=== PATIENT | female | born 1945 | race Caucasian/White ===

== ENCOUNTER 2017-07-25 04:27 | Inpatient (IN) | payer OTHER ==
[~2017-07-25] VITALS: Ht 162.6 cm; Wt 127.0 kg
[2017-07-25 07:18] LABS: Basophils # (auto) 0.1 uL; Eosinophils # (auto) 0 uL; Lymphocytes # (auto) 0.6 uL; Monocytes # (auto) 0.4 uL; White Blood Cell 4.5 10^3/uL (4.4-10.8)
[2017-07-25 07:20] LABS: Basophils % (auto) 2.1 % (0.0-2.0); Eosinophils % (auto) 0.2 % (0.0-7.0); Hematocrit 40.5 % (36.0-46.0); Hemoglobin 13.9 g/dL (12.2-16.2); Lymphocytes % (auto) 13.8 % (10.0-50.0); Mean Corpuscular Hgb Conc. 34.3 g/dL (32.0-36.0); Mean Corpuscular Volume 99.1 fL (80.0-100.0); Monocytes % (auto) 8.4 % (0.0-12.0); Neutrophils # (auto) 3.4 uL; Neutrophils % (auto) 75.5 % (37.0-80.0); Nucleated Red Blood Cells % 0.2 %; Platelet Count (auto) 148 10^3/uL (140-450); Red Blood Cells 4.08 10^6/uL (4.0-5.20); Red Cell Distribution Width 13.4 % (11.8-14.3)
[2017-07-25 07:32] LABS: Albumin 3.4 g/dL (3.4-5.0); BUN/Creatinine Ratio 17.8; INR 0.99 (0.9-1.15); Partial Thromboplastin Time 29.6 sec (22.64-33.71); Potassium 3.5 mmol/L (3.5-5.1); Prothrombin Time 10.8 sec (9.37-12.3)
[2017-07-25 07:36] LABS: Bilirubin, Total 0.8 mg/dL (0.2-1.0); Total Protein 7.6 g/dL (6.4-8.2)
[2017-07-25] MEDS ORDERED: HYDROcodone-ACET 5/325MG TAB PO PRN (09:30)
[2017-07-25] MEDS ORDERED: ONDANSETRON HCL 4 MG/2 ML VIAL IV PRN (09:30)
[2017-07-25] MEDS ORDERED: TEMAZEPAM 15 MG CAP PO PRN (09:30)
[2017-07-25] MEDS ORDERED: ACETAMINOPHEN 325 MG TAB PO PRN (09:30)
[2017-07-25] MEDS: SODIUM CHLORIDE 0.9% 1,000 ML IV SCH ×2 (09:40→19:01)
[2017-07-25] MEDS ORDERED: LACTULOSE 20Gm/30ML SOLN PO PRN (09:45)
[2017-07-25] MEDS: MORPHINE SULFATE 4 MG/ML SYR/VIAL IV PRN ×3 (09:46→21:54)
[2017-07-25] MEDS: MULTIPLE VITAMIN TAB PO SCH (10:00)
[2017-07-25] MEDS: ZINC SULFATE 220 MG CAP PO SCH (10:00)
[2017-07-25] MEDS: FAMOTIDINE 20 MG TAB PO SCH ×2 (10:00→21:54)
[2017-07-25] MEDS: ASCORBIC ACID 500 MG TAB PO SCH ×2 (10:30→21:54)
[2017-07-25] MEDS ORDERED: ceFAZolin 1GM/50ML 50 ML IV ONE (11:15)
[2017-07-25] MEDS: BOOST PLUS 8 ounce PO SCH ×3 (12:00→21:54)
[2017-07-25] MEDS: NYSTATIN (MOUTH-THROAT) 500,000 UNITS/5 ML SUSP MT SCH ×3 (12:23→21:53)
[2017-07-25] MEDS ORDERED: LIDOCAINE VISCOUS 2% 15ML UD ONE (12:59)
[2017-07-25] MEDS ORDERED: diphenhdrAMINE HCL 50 MG/1 ML VL ONE (13:00)
[2017-07-25] MEDS: fentaNYL CITRATE 100 MCG/2 ML VL ONE ×4 (13:10→13:21)
[2017-07-25] MEDS: MIDAZOLAM HCL 5 MG/ML-1ML VIAL ONE ×4 (13:10→13:21)
[2017-07-25 16:22] LABS: Urine Bacteria FEW /hpf (None Seen); Urine Blood Negative /uL (Negative); Urine Mucus FEW (None Seen); Urine WBC 3 /hpf (0 - 5)
[2017-07-25 17:50] VITALS: BP 131/69
[2017-07-25] MEDS ORDERED: HYDR-392 PO (18:07)
[2017-07-25] MEDS ORDERED: LIDO2SOL18 MT (18:07)
[2017-07-25] MEDS ORDERED: LEV50T PO (18:07)
[2017-07-25] MEDS ORDERED: ONDA4TAB5 PO (18:07)
[2017-07-25] MEDS ORDERED: PRO10T PO (18:07)
[2017-07-25 18:18] VITALS: BP 131/69
[2017-07-25 22:00] VITALS: BP 115/57
[2017-07-26 04:48] VITALS: BP 120/67
[2017-07-26] MEDS: SODIUM CHLORIDE 0.9% 1,000 ML IV SCH ×2 (05:41→08:56)
[2017-07-26] MEDS: NYSTATIN (MOUTH-THROAT) 500,000 UNITS/5 ML SUSP MT SCH ×2 (05:42→11:43)
[2017-07-26] MEDS: MORPHINE SULFATE 4 MG/ML SYR/VIAL IV PRN ×2 (05:42→11:43)
[2017-07-26] MEDS: BOOST PLUS 8 ounce PO SCH ×2 (05:43→11:44)
[2017-07-26 08:03] LABS: Albumin 2.7 g/dL (3.4-5.0); BUN/Creatinine Ratio 15.6; Calcium 8.1 mg/dL (8.5-10.1); Potassium 3.8 mmol/L (3.5-5.1)
[2017-07-26 08:06] LABS: Bilirubin, Total 0.6 mg/dL (0.2-1.0)
[2017-07-26 08:10] LABS: Basophils # (auto) 0 uL; Eosinophils # (auto) 0 uL; Lymphocytes # (auto) 0.4 uL; Monocytes # (auto) 0.3 uL; Neutrophils # (auto) 2.2 uL
[2017-07-26 08:12] LABS: Basophils % (auto) 0.8 % (0.0-2.0); Eosinophils % (auto) 0.6 % (0.0-7.0); Hematocrit 32.9 % (36.0-46.0); Hemoglobin 11.5 g/dL (12.2-16.2); Lymphocytes % (auto) 14.3 % (10.0-50.0); Mean Corpuscular Hemoglobin 34.9 pg (28.0-32.0); Mean Corpuscular Hgb Conc. 34.9 g/dL (32.0-36.0); Mean Corpuscular Volume 99.9 fL (80.0-100.0); Monocytes % (auto) 10.4 % (0.0-12.0); Neutrophils % (auto) 73.9 % (37.0-80.0); Platelet Count (auto) 106 10^3/uL (140-450); Red Cell Distribution Width 13.3 % (11.8-14.3)
[2017-07-26] MEDS: MULTIPLE VITAMIN TAB PO SCH (08:55)
[2017-07-26] MEDS: FAMOTIDINE 20 MG TAB PO SCH (08:55)
[2017-07-26] MEDS: ZINC SULFATE 220 MG CAP PO SCH (08:55)
[2017-07-26] MEDS: ASCORBIC ACID 500 MG TAB PO SCH (08:55)
[2017-07-26 09:00] VITALS: BP 116/59
[2017-07-26] MEDS ORDERED: LEVOTHYROXINE SODIUM 25 MCG TAB PO SCH (10:00)
[2017-07-26 13:00] VITALS: BP 129/72
[2017-07-26] MEDS ORDERED: HYDR-392 PEG (14:51)
[2017-07-26] MEDS ORDERED: LEV50T PEG (14:51)
[2017-07-26] MEDS ORDERED: PRO10T PEG (14:51)
[2017-07-26] MEDS ORDERED: ONDA4TAB5 PEG (14:51)
[2017-07-26 15:01] VITALS: BP 115/65
[2017-07-26] MEDS ORDERED: Fibersource Hn 1 Liter PEG SCH (15:45)
== END 2017-07-26 17:40 | disposition home health service (06) | DRG 147 ==
LOC: ER 04:30 → OVERFLOW 04:31 → EAST 17:25
PROVIDERS: ADMIT Internal Medicine; ATTEND Internal Medicine
PROC: 0DH63UZ Insertion of Feeding Device into Stomach, Percutaneous Approach (ICD-10-PCS; principal; 2017-07-25 13:09)
DX: C02.9 Malignant neoplasm of tongue, unspecified (principal); E87.1 Hypo-osmolality and hyponatremia; B37.0 Candidal stomatitis; E66.01 Morbid (severe) obesity due to excess calories; R13.10 Dysphagia, unspecified; C14.0 Malignant neoplasm of pharynx, unspecified; Z68.42 Body mass index [BMI] 45.0-49.9, adult; N18.2 Chronic kidney disease, stage 2 (mild); E03.9 Hypothyroidism, unspecified; N18.9 Chronic kidney disease, unspecified; E86.0 Dehydration; Z80.1 Family history of malignant neoplasm of trachea, bronchus and lung
CPT/HCPCS: 36415; 43246; 71045; 80053; 81001; 84443; 85025; 85610; 85730; 87086; 93005; 96361; 96365; 96375; J0690; J2250; J2405